=== PATIENT | male | born 1985 ===

== ENCOUNTER 2021-01-13 21:37 | Emergency (ER) | payer SELFPAY ==
[2021-01-13] MEDS ORDERED: Famotidine 20 MG Tab PO ONE (21:55)
[2021-01-13] MEDS ORDERED: Alum Hydrox/Mag Hydrox/Simeth 15 ML, Lidocaine 2% 5 ML PO ONE ×2 (21:56)
[2021-01-13] MEDS ORDERED: Dextrose 5%-Lactated Ringers 1,000 ML IV SCH (22:00)
[2021-01-13 22:34] LABS: BLOOD UREA NITROGEN,BUN 9 mg/dL (7.0-18.0); CARBON DIOXIDE,CO2 21.3 mmol/L (21.0-32.0); CHLORIDE,CL 105 mmol/L (98-107); GLUCOSE RANDOM 117 mg/dL (74-106); POTASSIUM,K 3.9 mmol/L (3.5-5.1); SODIUM,NA 140 mmol/L (136-148)
--- NOTE | 2021-01-13 23:14 | CR ---
INDICATION: Shortness of breath TECHNIQUE: Chest radiograph 1 view COMPARISON: None FINDINGS: Moderate degradation of image quality noted due to body habitus. Mediastinum: The mediastinum is normal in appearance. The heart silhouette is normal in size and morphology. Lung: Both lungs are unremarkable in appearance. No sign of pleural effusion seen. No pneumothorax is identified. Bone and Soft tissue: Unremarkable for age. IMPRESSION: 1. No acute cardiopulmonary disease is seen. Dictated by: Bryson Beltran MD @ 01/13/2021 23:13:08 (Electronically Signed)
--- NOTE | 2021-01-15 07:09 | PCM.EKG ---
#1 Interpretation EKG Date: 01/13/21 Time: 21:35 Rhythm: NSR Rate (Beats/Min): 93 Rew: Normal P-Wave: Present QRS: Normal ST-T: Normal (T wave inversion III aVF) QT: Normal Comparison: NA - No Prior EKG EKG Interpretation Comments: Sinus Rhythm with nonspecific T wabe inversions
--- NOTE | 2021-01-17 21:34 | EDM.PDOC ---
ED HPI GENERAL MEDICAL PROBLEM - General Chief Complaint: General Stated Complaint: EMT Time Seen by Provider: 01/13/21 21:42 - History of Present Illness INITIAL COMMENTS - FREE TEXT/NARRATIVE: CHIEF COMPLAINT(S): Anxiety HISTORY OF PRESENT ILLNESS: This is a 35-year-old man with a past medical history of alcohol abuse and alcoholic hepatitis who presents to the emergency department the chief complaint of anxiety. The patient was brought in by ambulance after he was found in a ditch and then went to a random home and they called the ambulance. He states he is unsure as to why he is here however per EMS: The patient's was complaining of anxiety, chest pain, difficulty breathing. The patient currently denies any symptoms at all whatsoever including fever, chills, chest pain, shortness of breath, abdominal pain, nausea or vomiting. Per the significant other who was at bedside she states that he has been drinking and approximately 3 weeks ago he was admitted for alcoholic hepatitis and today they got into an argument where he left and then apparently fell into a ditch and then presented to a random person's home. Otherwise no complaints. REVIEW OF SYSTEMS: Constitutional: Denies fever, chills. Eyes: Denies eye pain Ears, Nose, Mouth, & Throat: Denies earache Cardiovascular: Denies chest pain Respiratory: Denies shortness of breath Gastrointestinal: Denies Nausea, vomiting, diarrhea, hematochezia. Genitourinary: Denies hematuria Skin:Denies a rash MSK: Denies joint pain Neurological: Denies blurred vision Psychiatric: Denies depression PAST MEDICAL HISTORY: As per history of present illness and as reviewed below otherwise noncontributory. SURGICAL HISTORY: As per history of present illness and as reviewed below otherwise noncontributory. SOCIAL HISTORY: As per history of present illness and as reviewed below otherwise noncontributory. FAMILY HISTORY: As per history of present illness and as reviewed below otherwise noncontributory. EXAMINATION OF ORGAN SYSTEMS/BODY AREAS: Constitutional: Blood pressure is 138/89, heart rate 101, respiratory rate 16 with an oxygen saturation of 96% on room air. Temperature 36.6 General: Disheveled appearing man who is in no acute distress. The patient is covered in a Psychiatric: Appropriate mood and affect. Head: No signs of head trauma. Atraumatic, normocephalic. Eyes: No scleral icterus or conjunctival erythema pupils are equal round reactive to light. Extraocular movements intact. ENMT: Moist mucous membranes. No pharyngeal erythema Cardiovascular: Regular, rate, and rhythm. No gallops, murmurs, or rubs. Bilateral upper extremity pulses symmetric and intact. No peripheral edema. No JVD. Respiratory: Lungs clear to auscultation bilaterally. No wheezes, rales, or rhonchi. Gastrointestinal: Soft, non-tender, non-distended. Normoactive bowel sounds Genitourinary: No suprapubic tenderness Musculoskeletal: Normal range of motion. No midline cervical, thoracic, or lumbar tenderness. Skin: No lesions or abrasions. Neurological: Alert, GCS 15 strength and sensation grossly intact in upper and lower extremities bilaterally MEDICAL DECISION MAKING AND COURSE IN THE ED WITH INTERPRETATION/REVIEW OF DIAG NOSTIC STUDIES: This is a 35-year-old man with a past medical history of alcoholic hepatitis and hypertension who presents to the emergency department after saying that he is having chest pain and anxiety and shortness of breath at a random person's house who is mildly tachycardic but overall appears well minus being disheveled and intoxicated. We did obtain an EKG which not reveal acute signs of ischemia. We will provide patient with D5 normal saline, famotidine, and GI cocktail. Will obtain a chest x-ray and labs. I do not believe this is ACS and I do believe is secondary to anxiety given the patient's age however we will place the patient on cardiac monitoring pulse oximetry. Laboratory: CBC reveals microcytosis at 73.4. Otherwise no leukocytosis or anemia. CMP reveals elevated glucose at 117, hypocalcemia at 7.9, transaminitis with an AST of 186, ALT of 195 and alkaline phosphatase of 146. Serum alcohol level is 230. The radiological images were viewed by myself along with reading the report from the radiologist. Chest x-ray does not reveal any acute cardiopulmonary process. On reevaluation the patient continued to remain stable. We will observe the patient in the emergency department for clinical sobriety. The patient eloped from the emergency department. DISPOSITION: The patient eloped from the emergency department CONDITION: Fair PROCEDURES: None FINAL IMPRESSION(S)/DIAGNOSES: 1. Acute alcohol intoxication 2. Acute transaminitis likely secondary to #1 Kevin Eddy M.D. general Pain Score (Numeric/FACES): 6 - Related Data Allergies Allergy/AdvReac Type Severity Reaction Status Date / Time No Known Allergies Allergy Verified 01/13/21 21:50 Past Medical History Cardiovascular History: Reports: Hypertension Gastrointestinal History: Reports: GERD - Infectious Disease History Infectious Disease History: Reports: Hepatitis C Social & Family History - Tobacco Use Tobacco Use Status *Q: Never Tobacco User - Alcohol Use Days Per Week of Alcohol Use: 7 Number of Drinks Per Day: 10 Total Drinks Per Week: 70 - Recreational Drug Use Recreational Drug Use: No ED ROS GENERAL - Review of Systems Review Of Systems: See Below ED EXAM, GENERAL - Physical Exam Exam: See Below Course - Vital Signs Last Recorded V/S: Last Vital Signs Temp 36.6 C 01/13/21 21:45 Pulse 101 H 01/13/21 21:45 Resp 16 01/13/21 21:45 BP 138/89 01/13/21 21:45 Pulse Ox 96 01/13/21 21:45 - Orders/Labs/Meds Labs: Laboratory Tests 01/13/21 01/13/21 Range/Units 21:56 21:56 WBC 9.70 (4.0-11.0) K/uL RBC 5.64 (4.50-5.90) M/uL Hgb 13.0 (13.0-17.0) g/dL Hct 41.4 (38.0-50.0) % MCV 73.4 L (80.0-98.0) fL MCH 23.0 L (27.0-32.0) pg MCHC 31.4 (31.0-37.0) g/dL RDW Std Deviation 45.1 (28.0-62.0) fl RDW Coeff of Anahy 17 H (11.0-15.0) % Plt Count 358 (150-400) K/uL MPV 10.60 (7.40-12.00) fL Neut % (Auto) 34.6 L (48.0-80.0) % Lymph % (Auto) 43.4 H (16.0-40.0) % [place] % (Auto) 10.0 (0.0-15.0) % Eos % (Auto) 10.4 H (0.0-7.0) % Baso % (Auto) 1.6 H (0.0-1.5) % Neut # (Auto) 3.4 (1.4-5.7) K/uL Lymph # (Auto) 4.2 H (0.6-2.4) K/uL [place] # (Auto) 1.0 H (0.0-0.8) K/uL Eos # (Auto) 1.0 H (0.0-0.7) K/uL Baso # (Auto) 0.2 H (0.0-0.1) K/uL Nucleated RBC % 0.0 /100WBC Nucleated RBCs # 0 K/uL Sodium 140 (136-148) mmol/L Potassium 3.9 (3.5-5.1) mmol/L Chloride 105 (98-107) mmol/L Carbon Dioxide 21.3 (21.0-32.0) mmol/L BUN 9 (7.0-18.0) mg/dL Creatinine 1.3 (0.8-1.3) mg/dL Est Cr Clr Drug Dosing 79.31 mL/min Estimated GFR (MDRD) > 60.0 ml/min Glucose 117 H (74-106) mg/dL Calcium 7.9 L (8.5-10.1) mg/dL Magnesium 2.0 (1.8-2.4) mg/dL Total Bilirubin 0.2 (0.2-1.0) mg/dL AST 196 H (15-37) IU/L ALT 195 H (14-63) IU/L Alkaline Phosphatase 146 H (46-116) U/L Creatine Kinase 151 (26-308) U/L Total Protein 7.7 (6.4-8.2) g/dL Albumin 3.6 (3.4-5.0) g/dL Globulin 4.1 H (2.6-4.0) g/dL Albumin/Globulin Ratio 0.9 (0.9-1.6) Ethyl Alcohol 230 mg/dL Meds: Medications Discontinued Medications Generic Name Dose Route Start Last Admin Trade Name Freq PRN Reason Stop Dose Admin Al Hydroxide/Mg Hydroxide 15 0 ml 01/13/21 21:56 01/13/21 22:14 ml/ Lidocaine HCl 5 ml PO 01/13/21 21:57 1 each ONETIME ONE Administration Famotidine 20 mg 01/13/21 21:55 01/13/21 22:14 Famotidine 20 Mg Tab PO 01/13/21 21:56 20 mg ONETIME ONE Administration Dextrose/Lactated Ringer's 1,000 mls @ 999 mls/hr 01/13/21 22:00 Dextrose 5%-Lactated Ringers IV ASDIRECTED LUIS Departure - Departure Time of Disposition: 23:09 Disposition: Eloped 07 Condition: Fair Clinical Impression: Alcohol abuse - Discharge Information Referrals: PCP,None [Primary Care Provider] - Forms: ED Department Discharge Sepsis Event Note (ED) - Evaluation Sepsis Screening Result: No Definite Risk
== END 2021-01-13 22:55 | disposition left against medical advice (07) ==
LOC: MW.ED 21:37
DX: F10.129 Alcohol abuse with intoxication, unspecified (principal); R74.01 Elevation of levels of liver transaminase levels; I10 Essential (primary) hypertension; Y90.7 Blood alcohol level of 200-239 mg/100 ml
CPT/HCPCS: 36415; 71045; 80053; 80307; 82550; 83735; 85025; 93005; 99284; A9270; 93010; 99283; J7121